=== PATIENT | male | born 1995 | race Caucasian/White ===

== ENCOUNTER 2019-05-07 09:00 | Outpatient (RCR) | payer MEDICAID, SELFPAY ==
--- NOTE | 2019-05-07 09:10 | BH.SGPN.GN ---
Behaviors/Verbalizations/Mental Status: [] Eye contact is good. Motor activity is appropriate. Appearance is casual. Speech is Appropriate. Mood is anxious. Affect is congruent. Thoughts are linear and logical. No evidence of psychosis. Reviewed daily check in sheet and pt reports 1/5 for suicidal thoughts and 0/5 for intent. Client Response/Progress/Benefit: [] Pt participated at times during the group discussion. This was pt's first day in IOP. Shared increased in depression and anxiety related to father's stage 4 cancer, recent deaths, and break-up with GF. He disclosed the poor decisions that he made in the past month which have exacerbated his depressions and anxiety. 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 No progress noted. Benefited from group support and encouragement. Will continue in IOP to maintain safety, stabilize mood, and increase coping skills. Narrative Note: []
--- NOTE | 2019-05-07 10:16 | BH.SGPN.GN ---
Behaviors/Verbalizations/Mental Status: []Client alert and oriented, neatly dressed and groomed. Eye contact good. Motor activity appropriate. Speech within normal limits. Affect congruent, mood anxious. Thoughts linear, logical, no signs of hallucinations or delusions. Client Response/Progress/Benefit: []Client was an active participant in group activity and provided positive input during discussion. Client connected with the group quote and shared ?if you don?t recognize small progress you?ll want to give up and think you?ve made no progress at all.? Group worked together to define goals and identify the benefits of developing goals which included; moving forward in life, increasing self-esteem, gives purpose in life, sense of accomplishment, and increasing determination. Group also identified barriers to setting and accomplishing goals which include; fear of failure, wanting instant results, unrealistic expectations, distorted thoughts, lack of motivation, and apathy. Attentive during education on developing SMART goals. Benefited from increase awareness of goal-setting methods. Client?s first day of IOP. Will continue tx to prevent decompensation of depressive symptoms and improve daily functioning.
--- NOTE | 2019-05-07 11:15 | BH.SGPN.GN ---
Behaviors/Verbalizations/Mental Status: []Client alert and oriented, casually dressed and neatly groomed. Eye contact good. Motor activity appropriate. Speech within normal limits. Affect constricted, mood anxious and depressed. Thoughts linear, logical, no signs of hallucinations or delusions. Client Response/Progress/Benefit: []Pt attentive throughout, mostly quiet, contributed thoughts to discussion at times. Engaged in creating own mental health SMART goal. Pt identified goal is to make a list of future goals and identify three positives from the day every evening for a week. Pt reported this goal will benefit him by increasing his positive thinking and challenging negative lens about the future. Pt identified potential barriers to accomplishing goal to include: fear of disappointment, apathy, and dwelling on past failure. Pt reported he will overcome barriers by identifying potential consequences of not following through with his goal and by identifying past successes. Seemed to benefit from identifying a SMART goal and coming up with strategies to overcome potential barriers. Pt to continue IOP to increase healthy coping skills, improve emotional regulation, and prevent decompensation. Narrative Note: []
--- NOTE | 2019-05-07 12:26 | BH.COMM_ITS ---
Communication Note - Communication with Client Communication Note: Therapist met with client to complete intake paperwork and answer client's questions about IOP. Client denied any changes since his intake appointment last week. Therapist completed the [place]-Suicide Severity Rating Scale with client. Client reported he has had wishes of within the last month, but he denied having any suicidal ideations, plan, or intent within in the last month. Client denies having access to weapons in his home. Client iden tifies his edvin and family as his reasons to live.
--- NOTE | 2019-05-07 13:43 | BH.MDN ---
Multi-Disciplinary Note - Note 45-min Individual Time Started:: 12:11 Date: 05/07/19 Purpose of session/treatment goals addressed:: Purpose of this session was to establish rapport with pt, gather additional information regarding pt current functioning, symptoms, and stressors impacting mental health. Other topics including development of treatment goals. Eye Contact:: Good Motor Activity:: Appropriate Appearance:: Neat, Casual Speech:: Appropriate Mood:: Anxious, Depressed Affect:: Full, Other - incongruent AEB pt smile while discussing feelings of hopelessness/helplessness Thoughts:: Linear, Logical, No evidence of hallucinations/delusions noted Staff Interventions:: Therapist asked open ended and furthering questions to gather additional information regarding pt's symptoms, current stressors, as well as events leading to IOP admission. Worked with client to explore treatment goals to address in IOP. Therapist used strengths perspective to build rapport and help pt identify personal positives and resilience factors. Therapist used empathic responses to provide emotional validation. Applied PA techniques to explore coping strategies that have helped in the past, potential treatment barriers, and establish IOP treatment goals. Client Response:: Pt open to meeting with this therapist and engaged throughout session. He reports that his first day in IOP has gone well but that he is somewhat concerned his problems ?aren?t as bad as others?. Therapist and pt discussed self-comparison as a potential barrier and ways to challenge these thoughts when they occur in order to best promote treatment goal progress. Pt willing to continue giving group a chance and indicated understanding of how reframing could be helpful. Pt displaying insight and was able to make connections between how his thoughts have impacted his mental health in the past. Pt discussed recent stressors causing rumination and resulting in increased symptom severity. He shared primarily struggling with self-deprecating thoughts related to a recent break-up. Went on to discuss continued tension with his ex-girlfriend as he is having difficulties maintaining healthy boundaries and accepting the end of the relationship. Additional stressors include his father?s health, grieving the loss of his grandmother and the family dog, as well as fears of not living up to the expectations he has for his life. Pt identified racing thoughts and fears about not being successful in his future and being unloveable. Currently endorses symptoms of hopelessness, helplessness, reports passive thoughts of without plan or intent, ruminating anxiety that has resulted in panic attacks, sadness, loneliness, decreased appetite, and low motivation. Reports limited supports as he indicates decreased contact with friends following his recent breakup as they had been in a mutual friend group. Pt identified goals of decreasing anxiety and improving ability to manage rumination. Additional goals to increase sense of hope and reduce depressive symptoms impacting self-esteem. Risks/Concerns:: Pt completed the [place]-Suicide Severity Rating Scale during intake paperwork. Reported he has had wishes of within the last month. Denied having any active suicidal ideations, plan, or intent as of this date 05/07/19. Denies having access to weapons in his home. Identifies his edvin and family as his reasons to live. Progress Toward Goals/Plan:: Pt's first day of IOP, therefore no progress currently. Reports this is his first group therapy experience, so he feels nervous and unsure of whether this will be a ?good fit?. Pt endorses a depressed and anxious mood, negative thinking, anhedonia, passive thoughts of , decreased eating, impulsive behaviors, and limited supports. Will continue IOP to prevent decompensation, improve daily functioning, and increase mood stability. Time Stopped:: 12:54
--- NOTE | 2019-05-07 13:47 | BH.MTP_ITS ---
Master Treatment Plan - Patient Information Program Physician:: Dr. Apryl Foster Primary Therapist:: JACLYN Hensley - Psychiatric Diagnoses Psychiatric Diagnoses:: Major depressive disorder recurrent severe without psychosis, generalized anxiety disorder Diagnosis Code(s):: F 33.2 - Estimated LOS Estimated LOS (in weeks):: 6 Problem/Goal #1 - Problem/Goal #1 Stated Goal:: Client will decrease depressive symptoms, isolation, and passive suicidal ideations due to Major Depressive Disorder. Description of Barriers: Pt reports his father has been struggling with a cancer diagnosis which has been difficult for pt to cope with as well as added additional responsibilities for pt. Pt reports he has additionally experienced the recent loss of his grandmother and the family dog. Indicated low motivation to complete daily responsibilities due to lack of energy and enjoyment. Difficulties in reaching out to supports or communicating with others due to low self-confidence, limited supports, and experiencing difficulties in connecting with others. Recently experienced end of relationship with long-term girlfriend of five years which has further limited social support network. Reports feeling guilty about needing to ask for help. Functional Impact: Pt is a 23-year-old male with a history of depression and anxiety. Pt reports worsening symptoms in the 4-6 weeks prior to [facility] admission. Pt reports symptoms increased after his girlfriend of 5 years ended the relation ship. Additional stressors include the recent loss of his grandmother and family dog, as well as his father?s ongoing medical concerns related to a cancer diagnosis. At time of admission to [facility], pt endorsing increased depression, worthlessness, hopelessness, lack of motivation, anhedonia, low energy, fatigue, decreased appetite, poor concentration, forgetfulness, and passive thoughts of . Pt additionally reports having fleeting suicidal ideation without plan or intent. Denies active SI, plan, and intent. Pt additionally reports intrusive thoughts, rumination, and panic attacks. Panic is often exacerbated when away from home. At admission, pt?s symptoms were continuing to interfere with his social, occupational, and familial functioning. Goal Relevant Strengths/Supports: Client presents as a kind, intelligent, and motivated to improve his mental health. Client reports he uses his as support. Client is familiar with mental health tx and has an outpatient therapist and psychiatrist he sees regularly. Reports openness to learning new mental health sx management skills. - Objectives Objective #1 Stated Objective: Client will learn and utilize 2-3 healthy coping strategies to manage depressive symptoms. Interventions: Therapist will assist client in learning internal coping strategies to manage depressive symptoms, along with helping client identify triggers. Discharge Criteria: Client will have achieved this goal when can verbalize and has practiced at least 2 healthy coping strategies. Target Date: 06/18/19 Review Date: 06/04/19 Objective #2 Stated Objective: Client will identify 2-3 depressive thinking patterns and be able to challenge and replace negative thoughts. Interventions: Therapist will assist client in identifying depressive thinking patterns and provide client with resources to help teach client strategies in defeating negative thoughts. Discharge Criteria: Client will have achieved this goal when can verbalize and has practiced at least 2 healthy coping strategies. Target Date: 06/18/19 Review Date: 06/04/19 Problem/Goal #2 - Problem/Goal #2 Stated Goal:: Client will decrease ruminating thoughts which cause anxiety and feelings of panic. Description of Barriers: Pt reports his father has been struggling with a cancer diagnosis which has been difficult for pt to cope with as well as added additional responsibilities for pt. Pt reports he has additionally experienced the recent loss of his grandmother and the family dog. Indicated low motivation to complete daily responsibilities due to lack of energy and enjoyment. Difficulties in reaching out to supports or communicating with others due to low self-confidence, limited supports, and experiencing difficulties in connecting with others. Recently experienced end of relationship with long-term girlfriend of five years which has further limited social support network. Reports feeling guilty about needing to ask for help. Functional Impact: Pt is a 23-year-old male with a history of depression and anxiety. Pt reports worsening symptoms in the 4-6 weeks prior to [facility] admission. Pt reports symptoms increased after his girlfriend of 5 years ended the relationship. Additional stressors include the recent loss of his grandmother and family dog, as well as his father?s ongoing medical concerns related to a cancer diagnosis. At time of admission to [facility], pt endorsing increased depression, worthlessness, hopelessness, lack of motivation, anhedonia, low energy, fatigue, decreased appetite, poor concentration, forgetfulness, and passive thoughts of . Pt additionally reports having fleeting suicidal ideation without plan or intent. Denies active SI, plan, and intent. Pt additionally reports intrusive thoughts, rumination, and panic attacks. Panic is often exacerbated when away from home. At admission, pt?s symptoms were continuing to interfere with his social, occupational, and familial functioning. Goal Relevant Strengths/Supports: Client presents as a kind, intelligent, and motivated to improve his mental health. Client reports he uses his as support. Client is familiar with mental health tx and has an outpatient therapist and psychiatrist he sees regularly. Reports openness to learning new mental health sx management skills. - Objectives Objective #1 Stated Objective: Client will identify 2-3 anxiety triggers and 2 coping skills to use when feeling anxious. Interventions: Therapist will encourage client to use self-awareness strategies and assist client in developing coping strategies to manage ruminating thoughts. Discharge Criteria: Client will have met this goal when can identify at least 2 triggers and 2 ways to cope with anxieties. Target Date: 06/18/19 Review Date: 06/04/19
--- NOTE | 2019-05-07 13:47 | BH.PSA ---
Source of Information - Presenting Problems/Circumstances Problems, Referral Source, Mental Status, Client: Pt is a 23-year-old male with a history of depression and anxiety. Pt reports worsening symptoms in the 4-6 weeks prior to [facility] admission. Pt reports symptoms increased after his girlfriend of 5 years ended the relationship. Additional stressors include the recent loss of his grandmother and family dog, as well as his father?s ongoing medical concerns related to a cancer diagnosis. At time of admission to [facility], pt endorsing increased depression, worthlessness, hopelessness, lack of motivation, anhedonia, low energy, fatigue, decreased appetite, poor concentration, forgetfulness, and passive thoughts of . Pt additionally reports having fleeting suicidal ideation without plan or intent. Denies active SI, plan, and intent. Pt additionally reports intrusive thoughts, rumination, and panic attacks. Panic is often exacerbated when away from home. At admission, pt?s symptoms were continuing to interfere with his social, occupational, and familial functioning. Psychiatric Presentation - Psych Issues & Need for Admission Psychiatric Issues:: Depression, anxiety, grief Past Psychiatric History - Treatment Hx Treatment History: Pt receives services from [facility] for both psychiatry and counseling. Pt has a psychiatrist (Dr. Garcias) whom he has seen for about 2 years. He has a counselor and that he has seen for about 1 year off and on and has seen more frequently since March. First hospitalization:: Denies Most recent hospitalization:: Denies Medication Trials:: Yes - He said he has been on a lot of past medications for depression and anxiety ECT Therapy:: No Age of first mental health symptoms: Pt reports first experiencing mental health sx in middle school. Indicating he was first depressed and very anxious with panic attacks around age 13 after transferring schools Describe (age, circumstance, etc) any past hospitalizations: no prior hospitalizations Current providers for mental health treatment (counselor, psychiatrist, manager case, etc.): Cielo at [facility] for outpatient counseling and Dr. Garcias for psychiatry services. Development & Family of Origin - Childhood Significant Childhood Events: Pt was adopted at 2 weeks old and met two of his biological siblings as a young adult, reports his biological mother was an alcoholic. Pt first experienced mental health sx of depression and anxiety at 13 years old following transfering schools. Reports doing fairly in school but did not like it much. - Family Who currently lives in your home?: Pt lives with his mother and father and is currently staying at his grandparents house due to his parent's home being remodeled. Describe family composition:: Pt is adopter and has two biological siblings whom he does not see often. Lives with adopted parents from age of 2 weeks old - Family History Family Hx of Psychiatric or AOD Problems: Biological mother has hx of alcohol abuse and depression. Biological siblings report hx of depression and anxiety Ethnicity - Culture Do you identify yourself with any particular cultural, ethnic background, or community?: No - Sexuality Sexual Orientation: Heterosexual Spirituality - Orthodoxy Do you currently identify with any organized episcopal?: None - Beliefs Is there a particular form of support from this community you can use for your recovery?: No Mental Status - Memory Recent Memory: Good Remote Memory: Good - Concentration Concentration: Fair - Eye Contact Eye Contact: Good - Speech Speech: Articulate - Thought Process Thought Process: Logical Insight: Fair Judgment: Fair Behavior: Normal, Anxious - Orientation Orientation: Time, Person, Place, Situation - Appearance Appearance: Neat/clean - Mood Mood: Anxious, Depressed, Irritable - Affect Affect: Appropriate/calm Suicide Assessment - Suicidal Ideation Have you ever felt like hurting yourself?: No Were you using ETOH/drugs at the time?: No Suicidal Intentional Rating Scale (SIRS): No suicidal thoughts (past or present) - prior and current passive thoughts of not wanting to be alive but denies SI, plan, or intent, Suicidal thoughts (past) Physician Notification: If Active suicidal thoughts/Will not contract for safety is checked, contact physician and document in the Physician Notification section below. Violent Behavior/Abuse History - Homicidal Ideation Do you have any homicidal thoughts? If so, explain:: No Is there a known potential victim? If yes, who:: No - Abuse Have you ever been abused?: No - Life Events Are there any other significant life events?: - grandmother, dog, Hardships - Girlfriend of 5 years recently broke up with him, Family illness - father recently dx with stage IV liver cancer - Safety Do you ever feel threatened in your home? If yes, describe:: No Adult Social History - Age 18 to Present Describe your current support system:: Reports main support is his mother but does not have a strong support system Substance Use - Substance Substance Use Type: None - Specific Drugs What specific drugs have you used?: denies - Extent of Use What quantity of substances have you used?: denies prior use - Duration of Use How long have you used substances?: denies prior use - Last Usage What is the date and situation you last used?: denies prior use - IV Substance Use Do you have a history of IV use?: denies prior use Leisure/Social Activities - Interests What do you enjoy or might be interested in learning about?: Pt reports feeling unsure of who he is or what he enjoys and indicates wanting to discover more of his own interests and hobbies. Enjoys snowboarding and hiking. 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 List any previous volunteering you may have done:: denies Service - Service Have you ever been in the ?: No Legal History - Records Have you had any past legal charges?: No Do you have any current legal charges?: No Have you ever been incarcerated? If yes, describe:: No - Court Orders Have you had any past court orders for psychiatric treatment?: No Do you have a present court order for psychiatric treatment?: No Problem Checklist - Current Problem Areas Problem List: Nutritional/Eating pattern changes - recently lost 20 pounds in past two months due to decreased appetite, Depressed mood/sad, Bereavement, Anxiety Discharge Planning Needs - Anticipated Follow-Up Mental Health Center (Name/Phone Number):: [facility] Private Therapist/Psychiatrist:: Cielo [facility] and Dr. Garcias Release of Information Signed:: Yes Inside Sales Account Representative's Assessment - Client's Needs What are the client's feelings about the program?: Pt is ambivilant about the [facility] tx program as he is not sure how he will feel being in the group setting. Indicates willingness to Give it a try and is hopeful to learn skills for reducing depression and improving anxiety/stress management. What are the client's goals?: reduce anxiety and depression, increase coping skills repetoire, reduce apathy What are the client's strengths?: approachable, caring, intelligent, open Diagnoses - Diagnoses Diagnosis #1:: Major depressive disorder recurrent severe without psychosis Diagnosis #2:: generalized anxiety disorder Interpretive Summary - Interpretive Summary Interpretive Summary: Patient is a 23-year-old single male with a history of depression and anxiety who was referred to the [place] IOP program by his counselor on May 01, 2019. He was referred due to worsening anxiety and depression which has been worsening since early March 2019. 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 He lives with his parents in a house and gets along okay with them. He has had a lot of stressors involving loss in the past 1 or 2 months including the of his grandmother, of his dog, father diagnosed with stage IV liver cancer and currently dying (according to the patient). In addition, his girlfriend of over 5 years broke up with him in early March. He has been able to function at work but his concentration is decreased and his energy is low so it has not been easy. He describes his mood as hopeless and occasionally worthless feeling. He has been isolating himself and not socializing. He is not enjoying much of anything he does lately except may be driving to work and IOP is slightly enjoyable because it is peaceful. His appetite has been decreased and he lost 20 pounds in the past 2 months. His sleep is okay overall but he has had to stay at his grandparents house due to remodeling at his parents house recently and he only gets about 6 hours of sleep there. When he sleeps at home he gets 7 to 8 hours of sleep and sleep is okay. He he endorses feeling guilty over losing his girlfriend due to some type of infidelity on his part and over not contributing to society lately. He describes passive thoughts that he would not care if he but denies any suicidal ideation or plan. He denies also homicidal ideation, hallucinations, or delusions. Treatment Plan Recommendations - Recommendations Guidelines: Special needs identified to be included in the development of an individualized treatment plan regarding past psychiatric history and treatment, developmental events, family relationships/events/culture, past and/or current educational, occupational, social, and residential experience, and legal status. Recommendations:: Will be admitted to the IOP program at [facility] as the structure, education, individual and group therapy will prevent exacerbation of his symptoms which might require hospitalization. He will continue to follow-up with his outpatient psychiatric providers.
--- NOTE | 2019-05-08 09:00 | BH.SGPN.GN ---
Behaviors/Verbalizations/Mental Status: []Client alert and oriented, casually dressed and groomed. Eye contact good. Motor activity appropriate. Speech within normal limits. Affect constricted, mood anxious. Thoughts linear, logical, no signs of hallucinations or delusions. Reviewed client?s symptom tracker and client marked 1/5 for thoughts of suicide. Client denies risk of acting on these thoughts as shown by his score of 0/5 for risk. Client Response/Progress/Benefit: []Client responded well to session, engaged throughout. Client reports feeling ?exhausted and anxious? today. Client shared that it is challenging for him in group at times because his anxiety gets triggered by other?s responses to situations. The group processed a situation that happened during first group in which as group member was triggered. Client appeared to benefit from normalizing his anxiety and gaining reassurance. Client reported he went on a hike yesterday when he was feeling anxious and the hike helped him feel somewhat better. Client shared he was proud of himself for managing his emotions yesterday when he saw his ex-girlfriend. Client stated in the past he would have had a panic attack, but he was able to stay calm and continue with his day. Client?s stressor this morning is that he has to stay with his grandparents while his parent?s house gets remodeled. Client reported being in a different environment is stressful for him. Receptive to feedback on managing change. Appeared to benefit from processing emotions and stressors in a safe environment. Will continue IOP tx to prevent decompensation of symptoms and improve mood stability.
--- NOTE | 2019-05-08 10:02 | BH.SGPN.GN ---
Behaviors/Verbalizations/Mental Status: [Eye contact is good. Motor activity is appropriate. Appearance is neat, casual. Speech is Appropriate. Mood is anxious, depressed. Affect is incongruent AEB pt smiling and laughing despite reported mood. Thoughts are linear and logical. No evidence of psychosis.] Client Response/Progress/Benefit: [Pt was an active participant in group activity and discussion. Attentive during psycho-education. Pt worked with peers to define coping skills and discussed that coping skills included; skills to use to get us through difficult times, techniques to manage emotions, and reactions to difficult things/stressors in life. Group also worked together to identify how we learn our coping skills and pt indicated that past experiences, lack of awareness of what else to do, habit, environment, and fear contribute to commonly used means of coping. Group discussed that not all coping skills are healthy and identified common unhealthy coping skills. Pt indicated that in the past he has struggled with coping with depression and anxiety in unhealthy ways such as through; isolating, avoidance, and not reaching out to others. He participated in challenge activity in which participants were tasked with applying healthy coping skills to remain calm and regulate themselves while working together to complete a difficult task. After the group related the activity to need for healthy coping skills in daily life and pt expressed that having a good communication and encouragement from others is important for coping skill development. Pt benefited from increased insight and education on healthy vs unhealthy coping and internal vs external coping skills. Recommended continued IOP tx to reduce anxiety and depression, increase consistent skill application, and prevent decompensation.] Narrative Note: []
--- NOTE | 2019-05-08 11:11 | BH.SGPN.GN ---
Behaviors/Verbalizations/Mental Status: [Client alert and oriented, neat and casually dressed and groomed. Eye contact good. Motor activity appropriate. Speech within normal limits. Affect congruent, mood anxious, depressed. Thoughts linear, logical, no signs of hallucinations or delusions. ] Client Response/Progress/Benefit: [Client responded well to session, engaged throughout, actively listening and provided ideas during group brainstorming. Client appeared to connect with the activity from second group and helped the group identify benefits of having a strong foundation of internal and external coping skills. Client shared he wants to continue to develop new healthy means for coping so that she does not revert to old unhealthy habits of isolating and feeling hopeless when faced with o. Client helped the group discuss the different categories of coping skills and provided examples. Client created a coping skills ?menu? for the five categories of coping skills. Client selected hiking, exercising at the gym, positive self-talk/self-couching, and using supports to talk to when stressed. Client appeared to benefit from increasing his repertoire of healthy coping skills. Progress noted in client?s improved mood and report of reduced intensity of mental health symptoms. Client to continue IOP to promote gains and improve level of functioning.] Narrative Note: []
--- NOTE | 2019-05-09 09:38 | BH.DR.ITP ---
Initial Treatment Plan - Patient Information Visit Information: ADMISSION DATE: EXPECTED LOS: 4-6 weeks - Problems/Symptoms Problem #1:: Depression Symptom:: Hopelessness, anhedonia, fatigue, passive thoughts of Problem #2:: Anxiety Symptom:: Rumination, mild panic feelings
--- NOTE | 2019-05-09 09:40 | BH.PSY.EVA_ITS ---
Psychiatric Evaluation - Initial Evaluation Initial Evaluation: Chief Complaint: [Life has been bad] History of Present Illness: [] Patient is a 23-year-old single male with a history of depression and anxiety who was referred to the [facility] IOP program by his counselor on May 01, 2019. He was referred due to worsening anxiety and depression which has been worsening since early March 2019. 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 He lives with his parents in a house and gets along okay with them. He has had a lot of stressors involving loss in the past 1 or 2 months including the of his grandmother, of his dog, father diagnosed with stage IV liver cancer and currently dying (according to the patient). In addition, his girlfriend of over 5 years broke up with him in early March. He has been able to function at work but his concentration is decreased and his energy is low so it has not been easy. He describes his mood as hopeless and occasionally worthless feeling. He has been isolating himself and not socializing. He is not enjoying much of anything he does lately except may be driving to work and IOP is slightly enjoyable because it is peaceful. His appetite has been decreased and he lost 20 pounds in the past 2 months. His sleep is okay overall but he has had to stay at his grandparents house due to remodeling at his parents house recently and he only gets about 6 hours of sleep there. When he sleeps at home he gets 7 to 8 hours of sleep and sleep is okay. He he endorses feeling guilty over losing his girlfriend due to some type of infidelity on his part and over not contributing to society lately. He describes passive thoughts that he would not care if he but denies any suicidal ideation or plan. He denies also homicidal ideation, hallucinations, or delusions. He describes his anxiety is pretty severe now in the form takes is that he worries constantly about the future and is not sure how he will deal with any thing that happens in the future. He denies outright panic attacks but if he takes a nap during the day he wakes up feeling very panicky. It is not an outright panic attack and he is able to talk himself down but it lasts about an hour. He denies any history of aubree, OCD, eating disorder, PTSD, or trauma. For primary support he has his mother but he says he is really not much of a talker. He denies any history of self-harm or seizure. He does have a history of 4 concussions which happened when he was a child and someone from snowboarding. 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 Current Psychiatric Medications: [Kofi 20 mg (at this dose for about 1 month, on it total for about 1 year). Vitamin D supplement, [id number] B12 supplement] Past Psychiatric History: No prior psych admits. No suicide attempts ever. He has a psychiatrist (Dr. Garcias) whom he sees in 1 week and has seen her for about 2 years. He has a counselor and that he has seen for about 1 year off and on and has seen a counselor more frequently since March. He says he was first depressed and very anxious with panic attacks around age 13 after transferring schools. His first psych medication he took around age 20 he thinks. He said he has been on a lot of past medications for depression and anxiety. At least 7 meds but he is unsure of the names. He says that his current psychiatrist knows the names of the past meds he was on and which ones helped and which gave him bad side effects. But he does not remember any of these names except Paxil. [] Substance Use History: Non-smoker, no THC use, no alcohol use. He has not used any other drugs and has never been in rehab for substance use. [] Allergies: No known allergies [] Past Medical History: Negative for illness and no surgeries. Normal sexual function. Current medications: Prozac, vitamin D, [id number] B12 supplement. He also has Vistaril 25 mg p.o. as needed anxiety but he almost never uses it [] Family Psychiatric History: [] She is adopted. His adoptive father is 63 years old and dying of cancer. Adoptive mother is 60 years old. He was adopted at 14 days of life but he knew who his biological family was. He has never met his biological parents but he has met 2 of his biological siblings. From them he learned that there is a history of depression and anxiety in many of his biological siblings. His biological mother is an alcoholic. No completed suicides that he knows of in his biological family. Personal/Social History: [He was born and raised in [facility] [place] for the most part. He was adopted at 2 weeks of life. His adoptive parents are very loving and he is close to both of them. He denies any verbal, sexual or physical abuse growing up. He was not good at school and did not like it much. He graduated high school and has no college yet but may go back to college later. 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 He is worked now at [employer] in [place] for 18 months. He has had one serious girlfriend in the past for over 5 years who recently broke up with him in early March 2019. He had some type of sort of infidelity he said. So he feels a little guilty about that. He has no romantic relationships currently. He does miss his prior girlfriend.] Legal History: [Negative. No DUIs no ] Review of Systems: [] General review of systems and full review of systems negative except as noted in present illness. Vital Signs: [] Stable in the ER records Mental Status Examination: Patient is a 23-year-old male who appears normal or slightly younger than stated age. He is casually dressed and groomed with good hygiene. He is cooperative during the interview and has no psychomotor agitation or retardation. His speech is fluent and normal rate and rhythm with no pressure. He does have a slight lisp when he speaks. Mood is depressed and affect is constricted and consistent with depression. Thought processes goal-directed and organized. Thought content shows that he does have passive thoughts that he would not care if he . Suicidal ideation and there is no evidence of homicidal ideation. No evidence of hallucinations or delusions. Reality testing is intact. Intelligence is average. Judgment is intact and insight is fairly good. Impulsivity is low. Testing: His psychiatrist has checked his thyroid and vitamin D. [] Summary: [] Diagnoses: [] [place] I: [Major depressive disorder recurrent severe without psychosis, generalized anxiety disorder] [place] II: [] Negative [place] III: [] Negative except history of low vitamin D for which she takes a supplement. [place] IV: Primary support issues?loss of girlfriend, of grandma and dog, father dying Plan: [Will be admitted to the IOP program at [facility] as the structure, education, individual and group therapy will prevent exacerbation of his symptoms which might require hospitalization. He will continue to follow-up with his outpatient psychiatric providers. He will be continued on the same dose of Prozac 20 mg p.o. daily and will see his psychiatrist in 1 week. The risks options possible complications and side effects of medications he is on were discussed with the patient and he understands and accepts these. He feels safe currently and if he does not feel safe at some time in the future he will notify us at the [facility] or go to the emergency room.]
--- NOTE | 2019-05-09 10:49 | BH.NA ---
Physical Data - Vital Signs Temperature: 97.8 F Pulse Rate: 60 Respiratory Rate: 12 - Height/Weight Height: 1.6 m Weight:: 53.524 kg Weight in Pounds: 118.0 lbs Current Medication Compliance - Medication Compliance Do you take your medication as prescribed?: Yes Do you need assistance with taking medication?: No Have you had side effects from medication?: No Nutritional History - Appetite Nutritional Instructions:: If client shows signs of a swallowing problem, weight change of 10 pounds or more in the last month, or is on a diabetic diet, the physician will review and request a dietitian consult, as appropriate. All unintentional weight loss will be referred to the physician for decision on need for dietitian consult. Describe your appetite:: Fair Have you noticed a change in your eating habits lately?: Yes - appetite has decreased without significant weight loss Functional Assessment - Sleep Pattern Describe any problems with sleeping: Denies trouble falling or staying asleep. - Activities Motor Activity:: Functional Sensory/Communication Assess - Communication Problems Do you have difficulty understanding what people are saying?: No Do you have trouble putting your thoughts into words or expressing what you want to say?: No Do people ever have trouble understanding what you say?: No What is your primary language?: Maori Learning Assessment - Learning Barriers Learning Barriers:: Ready to learn Medical Problems/History - Pain Assessment Do you have acute or chronic pain?: No Surgical History - Surgical History Have you had any surgeries? If so, list type and date:: No Substance Abuse - Substance Abuse Please describe substance abuse in the last 30 days:: Denies ETOH, tobacco, and substance use. Mental Status Summary - Mental Status Significant Findings/Observations on Appearance and Mood:: Jared is A&Ox4, cooperative with interview, and makes good eye contact. Appropriate grooming and hygiene, casually dressed. Speech is clear and of regular rate and volume. Moderate depression. Mood congruent affect. Denies SI, does have passive thoughts of . Suicide Assessment - Suicidal Ideation Are you currently or have you been suicidal in the past?: No Suicidal Intentional Rating Scale (SIRS): No suicidal thoughts (past or present) Physician Notification: If Active suicidal thoughts/Will not contract for safety is checked, contact physician and document in the Physician Notification section below. Past Psychiatric History - MH Treatment Hx ECT Therapy Details:: N/A Age of first mental health symptoms: 8th grade Describe (age, circumstance, etc) any past hospitalizations: N/A Current providers for mental health treatment (counselor, psychiatrist, piano case and bench assembler, etc.): Psych - Marcellus Garcias. Counselor - Cielo Grijalva. PCP - Sabi Fall Risk Assessment - Age Age: Less than 60 - Mental Status Mental Status: Willing & able to ask for assistance when needed - Physical Status Physical Status: No problems - Impairments Impairments: None - Elimination Elimination: Continent AND independent - Gait or Balance Gait or Balance: Walks independently - Hx of Falls History of falls in the past 6 months: No known history - Medications/Substances Psychotropics:: Antidepressants, Anxiolytics (e.g. benzodiazepines) Medications/substances used within the past 24 hours or ordered to administer: 1-2 of the medications/substances listed above - Total Score Total Points:: 1 RN Summary of Impressions - Impressions Recommendations: Include psychiatric and medical issues, treatment planning recommendations, and discharge planning needs. Impressions: Psychiatric Issues: MDD, REJI Impression: General Medical Conditions: N/A Impressions: Discharge Planning Needs: none identified - Level of Care How do the client's current symptoms and functional deficits support need for this level of care?: Jared has noticed a decompensation in his mental health since March 2019, at which time he had a series of losses, including his father, grandmother, and dog. He also had a recent breakup with his girlfriend, during which he lost many friends. Client endorses isoloative behaviors and poor motivation for anything. He does have some passive thoughts of . IOP will promote gains and prevent further decompensation.
--- NOTE | 2019-05-09 14:48 | BH.MDN_ITS ---
Multi-Disciplinary Note - Note 60-min Individual Time Started:: 11:27 Date: 05/09/19 Purpose of session/treatment goals addressed:: Goal of session was to assess current symptoms and stressors impacting functioning. Reviewed progress in IOP and discussed pt ongoing ambivalence about group. Another goal was to address pt concerns regarding limited support system. Eye Contact:: Good Motor Activity:: Appropriate Appearance:: Casual Speech:: Appropriate Mood:: Depressed Affect:: Congruent Thoughts:: Linear, Logical, No evidence of hallucinations/delusions noted Staff Interventions:: Therapist used active listening and asked open-ended questions to explore pt's current stressors, symptoms, and factors impacting treatment commitment. Therapist used strengths perspective to empower pt on willingness to continue with tx despite ambivalence. Therapist addressed concerns about anxiety impacting pt ability to expand support network. Therapist used PA techniques to help pt identify and begin to address barriers impacting willingness to reach out to supports. Therapist aided pt in completing decisional balance to address ambivalence about support network. Therapist gave pt homework to rate anxieties about social settings. Client Response:: Pt receptive of session, engaged throughout. He reports being able to better adjust to group setting now that he has attended for past three days, however continues to report ambivalence regarding commitment to treatment. Pt discussed continuing to feel anxious when hearing other participants share personal struggles, reporting increased negative thoughts about his own life as a result. Pt has some insight regarding benefits of using self-coaching and reframing in the moment on reducing anxiety. Additionally, pt identified difficulties in getting up in the morning as a barrier impacting treatment commitment. Pt reports typically going to bed around 11:30pm but feels he is not able to go to bed earlier as nighttime is ?my only chance to have time to myself in the house?. Therapist attempted to work with pt on identifying ways to increase independent self-care time outside of the home and earlier in the day to improve sleep quality. Pt reports feeling uncomfortable doing activities outside of the home by himself. Shared he previously would do things with his ex-girlfriend and no longer has anyone to spend time with. Expressed he does not currently have any supports he is willing to reach out to as he notes ?I don?t really enjoy spending time with my current friend group?. Unable to identify on support he feels able to connect with. Therapist discussed potential benefits of expanding current support network, however pt indicates hesitancy in doing so. Able to work with therapist on identifying barriers of ?fear of rejection?, ?not feeling I have anything in common with them?, and ?not wanting to put in the time or effort to develop a friendship?. He shared reluctance to meet new people as pt believes this feels ?uncomfortable and too fake?. Willing to work with therapist on completing decisional balance regarding working through initial discomfort to expand support system. Continues to feel hesitant in doing so despite identifying benefits. Will continue to encourage pt to connect with others and reduce isolation. Pt willing to complete fear ladder to begin identifying and addressing specific fears related to social anxiety and establishing new supports. Risks/Concerns:: No risks or concerns noted. Pt denies any SI, plan, or intent as of this date 05/09/19. Reports his edvin as major protective factor. Progress Toward Goals/Plan:: Progress limited. Pt cotinues to report symptoms of depression and anxiety which he feels have increased due to decreased sleep since beginning IOP program. Reports using self-coaching to reduce anxiety on previous date but felt this was only helpful momentarily. Pt continues to reports uncertainty about willingness to commit to treatment which may impact hi s ability to fully apply skills learned. Pt reports feeling lonely and disconnected however is reluctant to develop new supports or reach out to current supports. Pt recommended continued IOP tx to reduce symptoms of depression and anxiety, increase mood stability, and prevent decompensation. Time Stopped:: 12:18
--- NOTE | 2019-05-14 09:05 | BH.SGPN.GN ---
Behaviors/Verbalizations/Mental Status: [Eye contact is good. Motor activity is appropriate. Appearance is neat and casual. Speech is Appropriate rate and tone. Mood is euthymic. Affect is congruent. Thoughts are linear and logical. No evidence of psychosis. Reviewed daily check in sheet and pt denies any active SI, plan, or intent. ] Client Response/Progress/Benefit: [Pt responded well to session, engaged throughout and open to processing with the group. Pt indicated current emotion as ?half-motivated? and discussed that this is due to beginning to see improvements in ability to challenge anxious thoughts and prevent from escalating to point of panic. Went on to discuss that although he continues to struggle with intrusive thoughts, he is using skills of self-talk and reaching out to supports. Pt did well to identify mental health wins which included using calming skills as well as setting aside time to write down daily positives. Pt appearing to benefit from support and structure of group environment. Expressed connecting increasingly with fellow participants. Pt continues to make progress in practicing more consistent use of coping skills and is recommended continued IOP tx to prevent decompensation, decrease depression, and promote ongoing application of healthy coping skills.] Narrative Note: []
--- NOTE | 2019-05-14 10:15 | BH.SGPN.GN ---
Behaviors/Verbalizations/Mental Status: []Client alert and oriented, casual dress, hygiene tended to. Eye contact good. Motor activity appropriate. Speech within normal limits. Affect congruent, mood dysthymic. Thoughts linear, logical, no signs of hallucinations or delusions. Client Response/Progress/Benefit: []Client responded well to session AEB contributing thoughts to discussion and listened attentively to others. Client indicated connecting with the topic of cognitive distortions and shared if don?t catch that we are being negative then negative thinking becomes ?the normal?. Client connected with the discussion about how distorted thought patterns can reinforce mental health symptoms. Client did well to work with the group on defining the various types of cognitive distortions and identifying how each distortion can negatively impact mental health. Client stated he struggles most often with using the distortions of fortune telling and mindreading. Client reported he often ?fortune tells? that the day is going to ?be terrible? and that ?there is no bright future for him?. Client recognized distorted thought patterns exasperate his depression and keep him stuck. Appeared to benefit from increasing awareness of cognitive distortions and how they can impact emotions and behaviors. Client to continue IOP to decrease depression, identify and challenge negative thoughts and prevent decompensation. Narrative Note: []
--- NOTE | 2019-05-14 15:43 | BH.MDN ---
Multi-Disciplinary Note - Note 30-min Individual Time Started:: 11:38 Date: 05/14/19 Purpose of session/treatment goals addressed:: Goal of session was to assess current symptoms and stressors, as well as progress towards tx goals. Additional goal was to address treatment goal 1. Eye Contact:: Good Motor Activity:: Appropriate Appearance:: Casual Speech:: Appropriate Affect:: Congruent Thoughts:: Linear, Logical, No evidence of hallucinations/delusions noted Staff Interventions:: Therapist used active listening and asked open-ended questions to explore pt's current stressors, symptoms, and treatment goal progress. Provided empathic responses and supportive feedback to validate pt emotions, as well as commended application of gratitude interventions over weekend. Therapist used PA techniques to continue to promote healthy change behaviors. Therapist aided pt in identifying self-care activities to aid in reducing depressive sx. Client Response:: Pt receptive of session, engaged throughout. He reports being able to identify various positives from his weekend and notes experiencing genuine happiness for a few moments. Expressed this is a big deal as he does not recall experiencing actual happiness since prior to the end of his relationship with his now ex-girlfriend. Pt described that he had agreed to meet up with his family for dinner to celebrate his mother?s birthday on Tuesday and noticed that while driving to the restaurant he was smiling and felt positive. Attributes this to being able to enjoy ?the little things? such as wearing his favorite flannel shirt, listening to good music, and driving down the highway as the sun was setting. Appeared to connect with discussion on gratitude and importance of identifying small moments of dom in order to challenge negative perspective and begin breaking cycle of depression. Willing to continue to keep track of small positive throughout his day and worked with therapist on identifying additional activities he can engage in to promote positivity and reduce depressive symptoms. Pt identified wanting to begin spending more time on his devotionals and reading through his bible. Shared this will be comforting and help improve sense of hope. Additionally, discussed use of affirmations to continue to improve overall self-esteem levels. Risks/Concerns:: No risks or concerns noted. Pt denies any SI, plan, or intent as of this date 05/14/19. Reports his edvin as major protective factor. Progress Toward Goals/Plan:: Progress noted per pt report of improved mood and reduced depressive sx. Pt continues to report symptoms of anxiety however was able to apply self-care concepts and thought challenging techniques to begin challenging negative perspective and identify small positives or moments of dom throughout his day. Continues to report limited supports, struggling with confidence and self-comparison, as well as ongoing anxiety and intrusive thoughts. Pt recommended continued IOP tx to reduce symptoms of depression and anxiety, increase mood stability, and prevent decompensation. Time Stopped:: 12:05
[2019-07-11 14:55] VITALS: PULSE 60; RESP 12; TEMP 36.6
== END 2019-05-14 23:59 ==
LOC: BHIOP 09:00
PROVIDERS: Referring Provider Psychiatry & Neurology Psychiatry; Visit Provider Psychiatry & Neurology Psychiatry
DX: F33.2 Major depressive disorder, recurrent severe without psychotic features (principal); F41.1 Generalized anxiety disorder; E55.9 Vitamin D deficiency, unspecified
CPT/HCPCS: 90792; H0035; H2012; H2020; T1002; 90837

== ENCOUNTER 2019-05-17 09:00 | Outpatient (RCR) | payer MEDICAID, SELFPAY ==
--- NOTE | 2019-05-17 09:05 | BH.SGPN.GN ---
Behaviors/Verbalizations/Mental Status: [] Eye contact is good. Motor activity is appropriate. Appearance is casual. Speech is Appropriate. Mood is euthymic. Affect is full. Thoughts are linear and logical. No evidence of psychosis. Reviewed daily check in sheet and notes 1/5 for suicidal thoughts and 0/5 for intent. This is baseline for patient. Client Response/Progress/Benefit: [] Pt was an active participant in group discussion. Emotion for today is mild anxiety. Shared that he attempted to use some mindfulness skills on his way to work yesterday which included meditation music and positive self-talk. Reports that this was awkward however there was some improvement in symptoms. Ruminating on his job and is thinking about finding a new position. Notes continued anxiety, stress, and depressive symptoms on a daily basis however is trying new skills and being more proactive. Progress noted per pt. Will continue in IOP to maintain safety, increased healthy coping, and prevent decompensation. Narrative Note: []
--- NOTE | 2019-05-17 10:05 | BH.SGPN.GN ---
Behaviors/Verbalizations/Mental Status: []Client alert and oriented, casual dress, hygiene tended to. Eye contact good. Motor activity appropriate. Speech within normal limits. Affect congruent, mood dysthymic. Thoughts linear, logical, no signs of hallucinations or delusions. Client Response/Progress/Benefit: []Pt engaged in session as evidenced by pt listening to others and providing input throughout. Pt stated he believes people run away from problems because fear of fighting and fear of facing our demons. Pt stated he has run away from his problems by isolating and pushing others away. Pt worked cooperatively with peers during problem solving activity, able to work through problem by using A,B,C,D,E problem solving method. Pt seemed to benefit from learning about problem solving method and rehearsing problem solving skills in the moment. Pt to continue IOP level of care to decrease isolation, increase utilization of healthy coping, and prevent decompensation. Narrative Note: []
--- NOTE | 2019-05-17 11:05 | BH.SGPN.GN ---
Behaviors/Verbalizations/Mental Status: []Client alert and oriented, neatly dressed and groomed. Eye contact good. Motor activity appropriate. Speech within normal limits. Affect congruent, mood euthymic. Thoughts linear, logical, no signs of hallucinations or delusions. Client Response/Progress/Benefit: []Client was an active participant in group activity and discussion. Client processed challenge activity with fellow participants and made connections with the barriers to problem solving encountered. Client completed a problem-solving worksheet in which he identified a current problem impacting mental health which is living at home with his parents and developed a [id number] plan to address this problem. Client identified steps such as identifying how much money to save, work more hours, find a roommate, and create a budget. Client identified barriers to include; work anxiety, fear of being alone, and fear of failure. Client did well to brainstorm strategies for addressing this and was open to feedback from the group.? Benefited from creating a personalized plan which client identified barriers and steps to work on a mental health problem. Will continues IOP tx to reduce depressive symptoms and further improve functioning.
--- NOTE | 2019-05-21 09:00 | BH.SGPN.GN ---
Behaviors/Verbalizations/Mental Status: [] Eye contact is good. Motor activity is appropriate. Appearance is casual. Speech is Appropriate. Mood is depressed. Affect is flat. Thoughts are linear and logical. No evidence of psychosis. Reviewed daily check in sheet and reports suicidal thoughts of 1/5 and intent 0/5. This is pt's baseline. Client Response/Progress/Benefit: [] Pt was an active participant in group discussion on the benefits of anxiety, boundary setting, and radical acceptance. Emotion for today is content. Shared some metnal health wins which included traveling with family and self-care with friends. Stressor was explaining to certain family and friends who he has not seen that him and his long time GF broke up. This triggered regrets, memories, and emotions. Denies any any emotions or thoughts became overwhelming. Progress noted per pt report. Benefited from group support, encouragement, and feedback. Will continue in IOP to maintain safety, prevent decompensation, and increase healthy coping skills. Narrative Note: []
--- NOTE | 2019-05-21 10:10 | BH.SGPN.GN ---
Behaviors/Verbalizations/Mental Status: []Client alert and oriented, casual appearance. Eye contact good. Motor activity appropriate. Speech within normal limits. Affect congruent, mood euthymic. Thoughts linear, logical, no signs of hallucinations or delusions. Client Response/Progress/Benefit: []Pt was an active participant in group discussion. Processed quote of the day with peers. Group discussed the MH benefits to having open and clear communication with support and providers. Pt connected with peers that he uses behavior to communicate how he feels because believes if people care about him they will recognize he is not doing well by how he is acting. Through discussion pt recognized using only behavior to communicate often sets him up to be disappointed and reinforces negative thought patterns. Group also discussed the barriers that tend to impact clear and open communication which include: fear, distorted thoughts, predicting the future, misinterpretations, non-verbal communication, and assumptions. Pt was attentive during psycho-education on communications styles (aggressive, passive, passive-aggressive, and assertive). Also provided input on the pros and cons to each communication style. Pt stated he could connect with all the different communication styles. t seemed to benefit from increased insight on how the way he communicates impacts his mental health. Pt to continue IOP level of care to increase generalization of healthy coping skills, identify and challenge distorted thoughts and prevent decompensation. Narrative Note: []
--- NOTE | 2019-05-21 11:10 | BH.SGPN.GN ---
Behaviors/Verbalizations/Mental Status: []Client alert and oriented, neatly dressed and groomed. Eye contact good. Motor activity appropriate. Speech within normal limits. Affect congruent, mood euthymic. Thoughts linear, logical, no signs of hallucinations or delusions Client Response/Progress/Benefit: [] Client active participant AEB his positive contributions and engagement throughout. Client reported he is an assertive communicator ?most of the time? and that it works out well. However, client shared he can become frustrated and defensive when being assertive does not go his way. Client took an active role during the activity and able to connect how ineffective communication negatively impacts mental health and relationships. Client identified his communication goal which is to practice being more ?upfront? with people when communicating rather than being vague. Client seemed to benefit from increased insight into how his communication style impacts her mental health and relationships. Client progressing as show by his report of improved management of negative thinking. Will continue IOP tx to promote mood stability and further improve daily functioning.
--- NOTE | 2019-05-25 10:18 | BH.SGPN.GN ---
Behaviors/Verbalizations/Mental Status: [Client alert and oriented, neat and casual dress, hygiene tended to. Eye contact good. Motor activity appropriate. Speech within normal limits. Affect congruent, mood dysthymic. Thoughts linear, logical, no signs of hallucinations or delusions. ] Client Response/Progress/Benefit: [Pt receptive of session, engaged throughout. He did well to work with the group to reflect on the quote and discussed the ways in which perspective can impact mental health and ability to make personal progress in life. Pt indicated that he had struggled with a negative or dismissive perspective on the past and noted that thoughts of ?someone will take care of it for me ? had kept him stuck and prevented from facing things he feels anxious about in the past. Expressed that a positive perspective can improve overall happiness.. Pt did well to engage in the challenge activity and was an active participant in identifying how perspective impacted ability to complete the task at hand. Shared that when supports have different perspectives it can be difficult to effectively communicate mental health needs. Pt appeared to benefit from increasing understanding of mental health benefits of a positive perspective and potential consequences to progress when perspective is negative or pessimistic. Pt progress noted in his ability to better manage stressors and report of decreased depression. Recommended continued IOP tx to promote continued progress, further decrease anxiety, and prevent decompensation.] Narrative Note: []
--- NOTE | 2019-05-25 11:15 | BH.SGPN.GN ---
Behaviors/Verbalizations/Mental Status: []Client alert and oriented, neatly dressed and groomed. Eye contact good. Motor activity appropriate. Speech within normal limits. Affect congruent, mood dysthymic. Thoughts linear, logical, no signs of hallucinations or delusions. Client Response/Progress/Benefit: []Client responded well to session, attentive and engaged during small group session. Group discussed the mental health benefits of recognizing strengths which included; improved self-esteem, better relationships, and increased resilience. Group identified the barriers that have prevented them from acknowledging their strengths and successes. These barriers included; negative thoughts, self-depreciation, mistaken beliefs, and not feeling allowed to acknowledge strengths. Group identified strategies to overcome barriers that prevent them from seeing strengths. These strategies included; keeping track of progress, practicing self-compassion, and challenging distortions. Client able to identify personal strengths he possesses which included; empathy, honesty, adventurousness, athleticism, and forgiveness. Appeared to benefit from recognizing personal strengths and identifying strategies to overcome barriers. Will continue IOP tx to decrease rumination and further increase healthy coping skills.
--- NOTE | 2019-05-25 16:32 | BH.MDN_ITS ---
Multi-Disciplinary Note - Note 30-min Individual Time Started:: 09:30 Date: 05/25/19 Purpose of session/treatment goals addressed:: Purpose of this session was to assess pt current symptoms, stressors, and treatment goal progress. Another purpose was to introduce core-beliefs and aid pt in identifying impact of negative core beliefs on mental health. Eye Contact:: Good Motor Activity:: Appropriate Appearance:: Casual Speech:: Appropriate Mood:: Dysthymic Affect:: Congruent, Other - reports feeling numb Thoughts:: Linear, Logical, No evidence of hallucinations/delusions noted Staff Interventions:: Therapist asked open ended and furthering questions to gather additional information regarding current symptoms, stressors, and treatment goal progress. Provided supportive feedback and empathic responses to validate pt emotions and normalize concerns. Therapist commended pt progress and utilized ND techniques to aid in identifying barriers and elicit motivation for change. Provided psychoeducation on core beliefs and began working with pt on i dentifying and challenging/reframing pt negative core beliefs. Gave homework to finish core belief exercise. Client Response:: Pt receptive of session, actively engaged throughout. He indicated feeling as though he no longer has an overwhelming sense of despair. Pt identified this as positive but is concerned that now he is just numb to emotions rather than depressed. Therapist gently challenged pt regarding numbness vs. not being used to being at baseline. Pt appeared receptive and indicated possibily struggling to readjust to what it feels like not to be depressed. Pt discussed what has helped reduce depression and indicated that self-talk, practicing radical acceptance, and engaging in opposite action have been most helpful. Pt discussed that although he feels he has made progress he continues to struggle with negative self-talk and feelings of not being good enough. Pt described thoughts of I'm just going to end up feeling bad again so why bother being happy?, worries of not succeeding in the areas of life he would like, and feeling as though he is a disappointment to others and doesn't deserve happiness. Appeared to connect with psychoeducation on core beliefs and how negative core beliefs can reinfoce depression and prevent willingness to accept positive emotions as valid. Remainder of session was spent aiding pt in identifying potential negative core beliefs that are keeping him from continuing to make progress. Identified feeling like he is annoying to his supports, feeling unattractive, and feeling his depression and anxiety define him as negative core beliefs about self. Pt did well to work with therapist on reframing each of these beliefs and identifying alternative positive affirmations he can use. Able to identify how challenging his perspective can increase hope and ability to sustain more positive emotions. Pt willing to complete remaining worksheet on negative core beliefs as homework and review Tuesday. Risks/Concerns:: No risks or concerns at this time. Pt denies any active SI, plan, or intent as of this date 05/25/19. Progress Toward Goals/Plan:: Progress noted per pt and therapist. Was able to practice opposite action and radical acceptance this past week when feeling anxious or depressed. He reports not isolating despite wanting to and spent time with some friends over the weekend. 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 Beginning to attempt to apply radical acceptance regarding end of his relationship which is a major stressor for him. Pt continues to report daily depression and anxiety which impact functioning. Denies active suicidal ideations, plan, or intent. Fearful that he will never be well enough to accomplish his larger goals for life. Will continue in IOP to maintain safety, prevent decompensation, stabilize mood, and improve daily functioning. Time Stopped:: 10:05
--- NOTE | 2019-05-28 10:07 | BH.SGPN.GN ---
Behaviors/Verbalizations/Mental Status: []Client alert and oriented, neatly dressed and groomed. Eye contact good. Motor activity appropriate. Speech within normal limits. Affect constricted, mood euthymic. Thoughts linear, logical, no signs of hallucinations or delusions. Client Response/Progress/Benefit: []Client active participant during group AEB client occasionally contributing to discussion. Client reported it is important to have social supports, but one can have unrealistic expectations for their supports which can cause problems. Client helped group brainstorm potential consequences of not having a support system. Group identified benefits of social support as building trust, less anxiety, less loneliness, different perspective, sense of purpose, resources, hope, and accountability. Client reported when he feels supported, he feels ?more fearless.? Client took an active during the group activity and was providing positive encouragement. Appeared to benefit from gaining awareness of barriers that keep people from seeking social support as well as identifying the benefits of increasing support. Client progressing AEB client?s report of being more active. Will continue IOP tx as client continues to endorse negative core beliefs that reinforce depression and anxiety.
--- NOTE | 2019-05-28 11:08 | BH.SGPN.GN ---
Behaviors/Verbalizations/Mental Status: [Pt alert and oriented, eye contact good, casually dressed, motor activity appropriate, speech normal rate and tone, mood anxious, euthymic, congruent affect, thoughts linear and intact, no evidence of delusions or hallucinations.] Client Response/Progress/Benefit: [Client active participant AEB client contributing to discussion, listened attentively to others and taking notes. Client worked with the group to make connections between barriers faced in the challenge activity and strategies for managing these barriers with utilizing social supports in daily life. Client reflected that a personal barrier in using current supports is feeling anxious about saying something or doing something embarrassing. Client contributed to discussion about the different types of support and benefits different types of support can provide. Client worked with the group to identify strategies for improving development of new supports and better utilization of current supports. Client identified he would like to improve occupational support by finding coworkers he feels comfortable with opening up to because he would be able to decrease work related anxiety and loneliness as a result. Client seemed to benefit from identifying a type of support he would like to improve upon and creating actionable steps to promote follow-through. Client to continue IOP level of care to prevent decompensation, increase use of healthy supports and a anxiety management skills.] Narrative Note: []
--- NOTE | 2019-05-28 14:42 | BH.MDN ---
Multi-Disciplinary Note - Note 30-min Individual Time Started:: 09:36 Date: 05/28/19 Purpose of session/treatment goals addressed:: Purpose of this session was to assess pt current symptoms, stressors, and treatment goal progress. Another purpose was to continue to discuss strategies for combating negative thoughts which reinforce depression and anxiety. Additional topics included: sleep hygiene and homework review. Eye Contact:: Good Motor Activity:: Appropriate Appearance:: Casual Speech:: Appropriate Mood:: Depressed Affect:: Congruent Thoughts:: Linear, Logical, No evidence of hallucinations/delusions noted Staff Interventions:: Therapist asked open-ended and furthering questions to elicit additional information regarding current sx, stressors, and treatment goal progress. Reviewed information discussed in previous session regarding negative core beliefs. Responded with empathic and supportive feedback to validate emotions and frustrations regarding ongoing depressive symptoms. Applied PA techniques to continue to promote change behaviors. Client Response:: Pt receptive of session, engaged throughout. Pt reported not completing homework from previous week due to having a really busy weekend. He indicated being especially tired today and is unsure as to why, but with further exploration was able to identify that his night time routine may have have an impact on sleep quality. Pt discussed often staying up until 1-2am and is usually on his phone prior to bedtime. Reports that he feels more energetic and productive at night and often creates new goals and aspirations for himself however finds that this motivation is no longer present upon waking. Pt expressed feeling motivated on Tuesday night, noting that he created goals to start going to the gym and work more; however, felt depressed in the moringing and ended up staying in bed until 1pm. Pt and therapsit discussed sleep hygiene and impacts this can have on mental health and reinforcing cycle of depression. Pt reports undertanding an indicated connecting with impact of sleeping in late on feelings of guilt and loss of motivation. Remains hesitent to change current sleep routine despite recognizing impact on mental health. Pt went on to indicate feeling his home environment is toxic to his mental health as it reminds me of all the bad stuff that happended here, sharing that his parent's house reminds him of his father's illness and other stressors. Pt able to recognize use of distorted thought patterns however uynable to identify specific distortions. Responded well to being challenged to apply CBT skills to potentially shift perspective about the house and identify positive memories experienced there as well. Reports willingness to complete thought challenge homework from previous week as well. Risks/Concerns:: No risk or concerns noted. Denies any suicidal ideations, plan, or intent as of this date 05/28/19. Progress Toward Goals/Plan:: Limited progress noted. Pt reports isolating on previous date due to feeling depressed upon waking and not having motivation to apply skills of opposite action of positive self-talk. Pt additionally reports ongoing difficulties with coping with negative thoughts about continuing to live in his parent's home and not accomplishing more with his life, however pt indicates not completing thought challenge homework specifically addressing negative core beliefs. Reports his current environment is a trigger and expressed feeling he can not do much to change this. Willing to work with therapist to identify ways he may improve his ability to cope with current circumstance and perception of environment. Will continue in IOP to maintain safety, prevent decompensation, stabilize mood, and improve daily functioning. Time Stopped:: 09:58
--- NOTE | 2019-06-01 09:03 | BH.SGPN.GN ---
Behaviors/Verbalizations/Mental Status: []Client alert and oriented, neatly dressed and groomed. Eye contact good. Motor activity appropriate. Speech within normal limits. Affect congruent, mood anxious. Thoughts linear, logical, no signs of hallucinations or delusions. Reviewed client?s symptom tracker, no risk for suicidal ideation, plan, or intent as of 06/01/19 as client's scores were within his baseline. Client Response/Progress/Benefit: []Client responded well to session, receptive to positive feedback from peers. Client reports feeling ?anxious? today. Client shared he has made some progress towards his treatment goals, but he continues to feel anxious about his future. Client stated he is mostly worried about being single and finding a partner. The group provided emotional support and alternative, positive perspectives to being single. The group reminded client that being single means time to work on loving oneself. Client was receptive and thankful for feedback. Client?s mental health wins today included practicing sitting with uncomfortable emotions rather than jumping to conclusions. Client reported he was also able to stop himself from engaging in his safety behavior of reassurance seeking via researching. Appeared to benefit from connecting with peers and reflecting on application of coping skills. Will continue IOP tx to promote use of healthy emotional regulation coping skills and further decrease negative self-talk that reinforces depression.
--- NOTE | 2019-06-01 10:17 | BH.SGPN.GN ---
Behaviors/Verbalizations/Mental Status: []Client alert and oriented, casually dressed and groomed. Eye contact fair. Motor activity appropriate. Speech within normal limits. Affect congruent to topic being discussed, mood euthymic. Thoughts linear, logical, no signs of hallucinations or delusions. Client Response/Progress/Benefit: []Client responded well to session, attentive and participating in small group discussion. Group identified the benefits to setting boundaries as well as the consequences of not setting healthy boundaries. Client engaged during discussion of the different types of boundaries and engaged in the self-assessment activity. Client stated it's freeing to have healthy sexual boundaries so everyone is on the same page. Client able to recognize his own mental health suffers when he does not set boundaries. Client seemed to benefit from increased awareness how poor boundaries can negatively impact mental health. Client to continue IOP tx to continue use of healthy coping skills, prevent decompensation, and continue to challenge distorted thoughts. Narrative Note: []
--- NOTE | 2019-06-01 11:22 | BH.SGPN.GN ---
Behaviors/Verbalizations/Mental Status: [Client alert and oriented, casual dress - wearing winter cap throughout group, hygiene appropriate. Eye contact good. Motor activity appropriate. Speech within normal limits. Affect congruent, mood euthymic. Thoughts linear, logical, no signs of hallucinations or delusions. ] Client Response/Progress/Benefit: [Pt responded well to session, active participant and willing to provide insight throughout. Pt did well to engage in the boundary self-assessment activity and worked with group to further process. Pt discussed that he has been becoming much more aware of how his difficulties in relying on others to ?fix things? or create his happiness have impacted his ability to care for himself when others set boundaries.. Noted that he has been practicing setting boundaries with himself in this area and respecting others personal boundaries as well. Pt shared increase insight regarding unhealthy boundaries and increased depression and anxiety as a result. Appeared to benefit from group discussion on strategies for further improving personal boundaries. Identified wanting to improve his ability to set and maintain healthy emotional boundaries, specifically in regard to how certain topics of conversations impact him. Progress noted in pt ability to identify impact of current boundaries on mental health progress and relationships. Client to discharge IOP tx on this date and recommended continued treatment on outpatient basis in order to maintain gains made, improve emotion regulation, and continue to promote healthy change behaviors. ] Narrative Note: []
--- NOTE | 2019-06-01 14:11 | BH.MTP_ITS ---
Treatment Plan Review Date of Admission:: 05/07/19 Date of Treatment Plan Review:: 06/01/19 Admitting Diagnoses:: Major depressive disorder recurrent severe without psychosis, generalized anxiety disorder Current Diagnoses:: Major depressive disorder recurrent severe without psychosis, generalized anxiety disorder Patient's Response to Treatment:: Client has responded well to treatment so far as shown by his report of decreased depression and anxiety related sx. Pt notes he is making strides in improved ability to implement healthy coping skills for managing emotions and reducing negative self-talk. Pt has done well to remain engaged in tx environment and has provided overall positive contributions. Pt has remained consistent with attendance and often comes to group early. Pt initially reported feeling overwhelmed and uncomfortable in tx environment due to feeling he was taking on fellow participants emotions and problems as his own. Since continuing in the program, he has done well to separate himself from other?s emotions and provide supportive feedback without having this negatively impact his own mental health. Pt is increasingly willing to volunteer and share during group discussion. Pt is a supportive and an active group participant. He shared ongoing difficulties in connecting with peers but does well to continue to try to make connections and communicate positively with others. In individual sessions, client is receptive to feedback and exploration of his stressors, thoughts, and behaviors to continue to contribute to mental health related sx. Pt has some issues in remaining consistent with homework however has been able to more successfully begin implementing healthy coping skills to manage his anxiety and depression. At admission, client reported symptoms of anxiety, depression, low self-esteem, poor motivation, passive thoughts of , and isolation that interfered with daily functioning. At review client reported reduced anxiety, decreased negative self-talk, reduced isolation, and no longer indicates passive thoughts of . Pt shared he is looking forward to continuing to make gains in improving self-confidence and increasing healthy supports. Pt reports increased issues with sleep and muscle pain which has begun to impact continued mental health treatment progress as he has experienced increased frustration and issues with memory as a result. Pt has seen an increase in DSM-5 scores in these areas; however has displayed a decrease in scores in the areas of depression by 37% and anxiety by 12% at time of review. Status of Current Problems and Symptoms: Client recently reported an exacerbation of physiological symptoms related to muscle pain and poor sleep. Client self-reports a belief his symptoms may be related to poor sleep hygiene and napping throughout the day which impacts ability to sleep at night. Client plans to begin incorporating more consistency in nighttime sleep routine. Additionally, client continues to struggle with negative thinking that reinforces poor self-esteem levels and anxiety. Client reports thoughts of I?m not good enough and he reports significant difficulties in challenging self- comparison related thoughts. Additionally, client has shown strides in reducing isolation. However, when he reports when he does spend time with others he struggles to truly feel connected and begins to second-guess himself as a result. Problem #1 Problem Name:: Reduce depression and hopelessness causing passive thoughts of deat Status of Goals:: Objective-1 partially complete. Client can identify depression related triggers and warning signs. He is able to identify potentially helpful coping mechanisms for reducing depression and reports implementing some coping skills to reduce symptoms though struggles in consistently doing so. Client completed the DSM-5 and depression sx have reduced by 37%. Objective 2-partially complete. Client can identify some common distorted thought patterns and mistaken beliefs. He reports some ability to reframe cognitive distortions when able to recognize them but does not always recognize distortions until afterwards. Client can continue to work on this goal, though, as she continues to struggle with reframing deep-rooted core beliefs. Team Recommendations:: Client encouraged to continue working on this treatment goal to reinforce healthy coping skills and continue to further decrease symptoms of depression. Client and therapist currently working on small confidence building goals, thought challenging, and practicing daily self-care. Will continue IOP tx to maintain gains and continue to decrease depressive sx. Problem #2 Problem Name:: Reduce ruminating thoughts causing anxiety and panic Status of Goals:: Objective 1-partially complete. Client reports using self-talk and mindfulness to manage anxiety sx. Reports wanting to engage in small expos ure goals to further increase self-confidence and reduce anxiety about social situation. Client reports reduced isolation and increased social interaction with friends. However, client?s social interactions are inconsistent and Client can benefit from continuing to work on engaging in activities outside of home or work environment. Team Recommendations:: Client encouraged to continue working on this treatment goal to reinforce healthy coping skills to reduce social anxiety and isolation. Client and therapist currently working on reinforcing affirmations to reduce anxiety and set small exposure goals to confront anxiety producing situations rather than avoid them. Continued IOP tx recommended for further progress in this area.
--- NOTE | 2019-06-04 09:03 | BH.SGPN.GN ---
Behaviors/Verbalizations/Mental Status: [Eye contact is good. Motor activity is appropriate. Appearance is casual. Speech is Appropriate. Mood is anxious, euthymic. Affect is congruent. Thoughts are linear and logical. No evidence of psychosis. Reviewed daily check in sheet and no reports of suicidal ideations or intent.] Client Response/Progress/Benefit: [Pt was an active participant in group discussion, providing input and supportive feedback throughout. Emotion for today is ?anxious, but confident?. He shared that actively applying positive self-talk and working to challenge his perspective when feeling negative has aided in improving self-confidence levels. Pt shared current mental health wins include agreeing to stay an extra hour past his usual work shift and not feeling anxious about the change in routine when doing so. Additional win as reminding himself to use radical acceptance concepts when becoming triggered by a photo of his ex with another hasmukh. Discussed reminding himself ?This is okay, I can be happy again with someone else?. Went on to indicate plans to further increase confidence levels by obtaining a gym membership. Progress noted per pt report. Benefited from group support, encouragement, and feedback. Will continue in IOP to prevent decompensation, decrease anxiety, and increase healthy coping skills.] Narrative Note: []
--- NOTE | 2019-06-04 10:20 | BH.SGPN.GN ---
Behaviors/Verbalizations/Mental Status: [] Eye contact is good. Motor activity is appropriate. Appearance is casual. Speech is Appropriate. Mood is euthymic. Affect is full. Thoughts are linear and logical. No evidence of psychosis Client Response/Progress/Benefit: [] Pt was an active participant in group discussion and activity. Engaged and provided insight on today's quote. Worked with group to define pitfalls in mental health which group identified were; hidden or unsuspected obstacles, emotional traps, when we defeat ourselves, and unforeseen obstacles which impact progress. Group discussed the impacts of pitfalls which can cause one to; give up, revert back to unhealthy coping, isolate, define oneself as a failure. Pt was most active during the activity and took on role as a leader with peers. Group briefly discussed the emotions and pitfalls which occurred during the activity noting that it caused anxiety, anger, fear, and at times they wanted to give up. Pt was able to relate the activity to his own MH and emotions when he has encounter a pitfall which was beneficial in in terms of insight and awareness. Narrative Note: []
--- NOTE | 2019-06-04 11:21 | BH.SGPN.GN ---
Behaviors/Verbalizations/Mental Status: []Client alert and oriented, neatly dressed and groomed. Eye contact good. Motor activity appropriate. Speech within normal limits. Affect congruent, mood anxious. Thoughts linear, logical, no signs of hallucinations or delusions. Client Response/Progress/Benefit: []Client receptive of session, attentive and participating throughout session. Client helped group process the activity and how it connects to pitfalls in real life. Client completed a worksheet where he identified personal pitfalls impacting mental health progress. Identified pitfalls as: over-researching and comparing himself to others. Client recognized that in order to become less vulnerable to pitfalls it takes self-awareness and healthy coping skills. Client reported belief he has been doing well to avoid his pitfalls, but he wants to continue to work on keeping track of his mental health wins. Benefited from identifying personal pitfalls and strategies to overcome these pitfalls. Progress noted as client self-reports improved mood stability, but he continues to endorse poor self-esteem and negative core beliefs.? Narrative Note: []
--- NOTE | 2019-06-04 13:51 | BH.MDN_ITS ---
Multi-Disciplinary Note - Note 60-min Individual Time Started:: 12:24 Date: 06/04/19 Purpose of session/treatment goals addressed:: Purpose of this session was to assess pt current symptoms, stressors, and treatment goal progress. Another purpose was to discuss cycle of depression and identify strategies for reducing isolation and increasing self-confidence. Additional topics included: homework review. Eye Contact:: Good Motor Activity:: Appropriate Appearance:: Neat, Casual Speech:: Appropriate Mood:: Anxious, Depressed Affect:: Congruent Thoughts:: Linear, Logical, No evidence of hallucinations/delusions noted Staff Interventions:: Therapist asked open-ended and furthering questions to elicit additional information regarding current sx, stressors, and treatment goal progress. Provided empathic responses and supportive feedback as pt discuss ed ongoing stressors contributing to mental health sx. Provided psychoeducation regarding cycle of depression and impact of isolation in maintaining depression and reinforcing negative core beliefs. Applied [place] techniques to continue to promote change behaviors. Client Response:: Pt receptive of session, engaged throughout and openly discussing thoughts, feelings, and observations. Pt reported he continues to struggle with sleep as he has been staying up later due to wanting to wait until the rest of his house is asleep so he has time to himself. Pt expressed knowing this impacts his mood negatively the next day as he tends to sleep in and then feels guilty about doing so; however, reports limited desire to adjust current sleep routine as he feels having the time to himself at night is more valuable. Pt reports sleeping much of the day yesterday and indicated that this was due to being up too late, as well as taking on more hours at work. He noted that he feels like adding on more hours to his workload will contribute to feeling more productive and therefor less depressed but is concerned he may just be distracting himself and end-up burning himself out with work as well. Pt and therapist discussed pros and cons of adding more hours. Additionally, discussed alternative ways to reduce isolation and engage in activities that provide meaning. Reviewed how engagement in meaningful activities can improve sense of purpose and in-turn self-confidence. Pt expressed not knowing what he enjoys or what might be fun as nothing feels enjoyable. Receptive of discussion on opposite action as a means of reducing apathy. Pt identified that going for hikes and spending time with friends are things he used to enjoy. Noted that he could make plans this week to go on a hike with a friend or out to dinner. Expressed that he would additionally continue to work on application of positive affirmations to motivate himself to follow-through with identified plans. Risks/Concerns:: No risk or concerns noted. Denies any suicidal ideations, plan, or intent as of this date 06/04/19. Progress Toward Goals/Plan:: Limited progress noted. Pt reports continuing to engage in isolating behaviors and feels he is not able to connect well with others. Denies attempting to engage in activities where he may be around others or find pleasure in and instead is spending a majority of his time sleeping or working. Displays insight into how his behaviors contribute to maintaining depression however struggles with motivation to do anything else. Reports limited socialization as he does not feel he connects well with current supports but is ambivalent about expanding support [place]. Continues to report negative self-talk, however expressed that beginning to apply daily affirmations is improving ability to challenge these thoughts. Willing to work with therapist to identify ways he may improve his ability to reduce depression via decreasing isolation. Will continue in IOP to maintain safety, prevent decompensation, stabilize mood, and improve daily functioning. Time Stopped:: 13:07
--- NOTE | 2019-06-08 09:05 | BH.SGPN.GN ---
Behaviors/Verbalizations/Mental Status: [Client alert and oriented, casual dress, hygiene tended to. Eye contact good. Motor activity appropriate. Speech within normal limits. Affect congruent, mood euthymic. Thoughts linear, logical, no signs of hallucinations or delusions. Reviewed client?s symptom tracker, no signs of suicidal ideation, plan, or intent as of today. ] Client Response/Progress/Benefit: [Pt was receptive of session, actively listening throughout and providing input to the group. Emotion for today is ?content?. He indicated that this was due to increased ability to challenge negativity and focus on the positives as well as recognize personal progress he has made since beginning IOP tx. Pt able to identify mental health wins contributing to progress levels. Wins identified as following through with his goal to get a gym membership and shared taking this one step further and actually going to the gym 3 times this week. Additional win noted as accomplishing another goal in which he challenged himself to times this week. Pt appeared to benefit from the supportive feedback and encouragement provided by the group. Pt progress noted in reported application of skills learned outside tx environment as well as self-report of decrease mental health sx. Recommended continued tx to prevent decompensation, continue to increase self-esteem and reduce anxiety, as well as promote healthy change behaviors. ] Narrative Note: []
--- NOTE | 2019-06-08 10:30 | BH.SGPN.GN ---
Behaviors/Verbalizations/Mental Status: []Client alert and oriented, neatly dressed, hygiene tended to. Eye contact good. Motor activity appropriate. Speech within normal limits. Affect congruent, mood euthymic. Thoughts linear, logical, no signs of hallucinations or delusions. Client Response/Progress/Benefit: []Pt receptive to session, provided input and remained an active listener throughout discussion on stress. Able to brainstorm with the group positive and negative aspects of stress on physical and mental health. He participated in identifying current stressors impacting mental health. Pt's current stressors include: work, relationships, and financial problems. Pt stated when he gets overwhelmed with stress he will shut down and isolate. Appeared to benefit from gaining awareness of own current stressors and learning about the impact stress has on overall wellbeing. Progress noted in improved ability to identify impact not dealing with stressors can have on his mental health and wellbeing. Recommended continued IOP tx to continue use of healthy coping skills, maintain gains, and prevent decompensation. Narrative Note: []
--- NOTE | 2019-06-08 11:27 | BH.SGPN.GN ---
Behaviors/Verbalizations/Mental Status: []Client alert and oriented, neatly dressed and groomed. Eye contact good. Motor activity appropriate. Speech within normal limits. Affect congruent, mood euthymic. Thoughts linear, logical, no signs of hallucinations or delusions. Client Response/Progress/Benefit: []Client was an active participant throughout session, providing good feedback and encouragement during the activity. Client worked with the group to complete the challenge activity and was providing ideas. Client was able to identify barriers encountered that may also impact managing stress in daily life. Group identified barriers of stress management to include taking on the biggest stressor at once, not asking for help, and avoidance. Client acknowledged that he often tried to find loopholes during the activity and the group reported they do this in their daily lives as well. Client actively listening during discussion about the 4 A's of managing stress. Expressed wanting to increase awareness of which strategies would be best for improving each of her identified stressors. Client seemed to benefit from increased awareness of the impact of stress on mental health and increasing repertoire of stress management strategies. Progress noted as client reports reduced intensity of symptoms. However, client continues to struggle with negative self-talk that reinforces depression and anxiety. Narrative Note: []
--- NOTE | 2019-06-12 09:00 | BH.SGPN.GN ---
Behaviors/Verbalizations/Mental Status: [] Eye contact is good. Motor activity is appropriate. Appearance is neat. Speech is Appropriate. Mood is euthymic. Affect is full. Thoughts are linear and logical. No evidence of psychosis. Reviewed daily check in sheet and no reports of suicidal ideations or intent. Client Response/Progress/Benefit: [] Pt participated at times in group discussion. Emotion for today is content. Shared some mental health wins which positively impacted his mental health. More consistent use of self-care which has impacted overall mood as well. Obtained a gym membership and went running yesterday. Notes that his thoughts continue to be a significant stressor as they are erratic. He is working on challenging them however admits that this does not always work. Group provided feedback and suggestions on challenging thoughts which was beneficial. Progress noted per pt report. Will continue in IOP to prevent decompensation, maintain gains, and increase healthy coping. Narrative Note: []
--- NOTE | 2019-06-12 10:02 | BH.SGPN.GN ---
Behaviors/Verbalizations/Mental Status: []Client alert and oriented, neatly dressed and groomed. Eye contact good. Motor activity appropriate. Speech within normal limits. Affect congruent, mood euthymic. Thoughts linear, logical, no signs of hallucinations or delusions. Client Response/Progress/Benefit: []Client was attentive and participating during discussion. Client participated in discussion of the quote and shared belief that people do not always have the choice of their circumstances, but they have the choice of how they respond. The group worked together to identify barriers that keep one from choosing a new and healthier path to mental wellness which included; unhealthy habits, fear of failure, procrastination, stigma, lack of supports, and negative thinking. Attentive during psychoeducation on the chapters of life. Client was attentive during discussion, providing insight to distinguishing factors in each chapter. Client shared to choose a different path, one needs awareness and ?to be proactive.? Benefited from increased awareness and education on barriers to choosing new wellness paths and chapters of life. Progress noted as client reports improved ability to cope with triggers, but he continues to report chronic negative core beliefs. Narrative Note: []
--- NOTE | 2019-06-12 13:51 | BH.MDN ---
Multi-Disciplinary Note - Note 30-min Individual Time Started:: 11:53 Date: 06/12/19 Purpose of session/treatment goals addressed:: Purpose of this session was to assess current symptoms, stressors, and review progress in IOP. Another purpose was to discuss strategies for continuing to improve self-confidence. Eye Contact:: Good Motor Activity:: Appropriate Appearance:: Neat, Casual Speech:: Appropriate Mood:: Euthymic Affect:: Full Thoughts:: Linear, Logical, No evidence of hallucinations/delusions noted Staff Interventions:: Therapist asked open-ended and furthering questions to gather information regarding pt current sx, stressors, and treatment goal progress. Provided supportive feedback and commended pt progress in applying skills learned. Reviewed and aided pt in processing homework from previous session. Provided psychoeducation on self-compassion in improving confidence levels. Utilized [place] techniques to continue to elicit change behaviors and identify strategies for further reducing anxiety and increasing self-confidence levels. Client Response:: Pt receptive of session and actively engaged throughout. He discussed feeling as though his emotions have been normal and well regulated for the past few weeks which has been a positive adjustment for him. Pt went on to describe noticable improvements in his overall mood and ability to enjoy the small things in life. Went on to indicate successfully completing homework from previous session to step outside his comfort zone and spend 5 minutes speaking ot someone he would not normally speak to. 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 Identified this as a positive experience and was surprised by how easily the conversation went and his ability to make connections with this person. Noted increased positive thoughts and confidence in himself as a result. Pt went on to reflect on the importance of being willing to challenge his perspective, reframe negative thoughts, and start engaging in opposite action on reducing his mental health sx. Additionally noted challenging himself to do the anxious thing and ended up stepping out of his comfort zone and asking someone on a date as a result. Shared feeling more confident in his ability to cope with and overcome fears by successfully doing so. Pt noted that despite significant strides forward in past several weeks, he continues to struggle with self-comparission and low confidence levels. Shared he is trying to challenge these thoughts but continues to struggle. Remainder of session was spent discussing identifying positive attributes when catching himself focusing on what he believes to be faults, as well as identifying a positive mantra to say when beginning to focus on the negative. Pt indicates feeling like he will be ready to discharge next week. Given progress levels and reports of decreas mental health sx, therapist is in agreement to have pt step down from IOP next week following completion of mental health sx maintenance plan. Risks/Concerns:: None reported. Pt denies any active SI, plan, or intent as of 06/12/19. Progress Toward Goals/Plan:: Progress noted. Pt reports reduced levels of anxiety and increased ability to cope with ruminating or anxiety provoking thoughts. Additionally indicated improved confidence levels and incresed enjoyment of activities he used to find enjoyable. Pt continues ot struggle with significant self-depricating talk and distorted thoughts associated with body image. He would do well to continue in IOP tx to reduce negative self-talk and complete aftercare coping plan to maintain gains following projected discharge next week. Time Stopped:: 12:25
== END 2019-06-14 23:59 ==
LOC: BHIOP 09:00
PROVIDERS: Referring Provider Psychiatry & Neurology Psychiatry; Visit Provider Psychiatry & Neurology Psychiatry
DX: F33.2 Major depressive disorder, recurrent severe without psychotic features (principal); F41.8 Other specified anxiety disorders
CPT/HCPCS: H0035; H2012; H2020; 90832; 90834

== ENCOUNTER 2019-06-19 09:00 | Outpatient (RCR) | payer MEDICAID, SELFPAY ==
--- NOTE | 2019-06-19 09:07 | BH.SGPN.GN ---
Behaviors/Verbalizations/Mental Status: []Client alert and oriented, neatly dressed and groomed. Eye contact good. Motor activity appropriate. Speech within normal limits. Affect congruent, mood euthymic. Thoughts linear, logical, no signs of hallucinations or delusions. Reviewed client?s symptom tracker, no risk for suicidal ideation, plan, or intent as of 06/19/19. Client Response/Progress/Benefit: []Client responded well to session, connecting with peers and attentive throughout. Client reports feeling ?content? today. Client identified his mental health wins today sharing he has been exercising and cut his mile run down by a minute. Client reported exercise betters his mental health. Client stated overall he has been feeling ?neutral? and client shared there have not been many significant stressors. Client?s stressor today is that his father?s health is continuing to decline which has an impact on client?s mental health. The group offered supportive statements to client. Client recognized that he has the right to self-care and setting boundaries with his family, despite his father?s poor health. Appeared to benefit from connecting with peers. Progress noted as client reports improved mood stability since admission. Will continue IOP tx to promote use of healthy coping skills and maintain gains. Narrative Note: []
--- NOTE | 2019-06-19 10:20 | BH.SGPN.GN ---
Behaviors/Verbalizations/Mental Status: []Client alert and oriented, neatly dressed and groomed. Eye contact good. Motor activity appropriate. Speech within normal limits. Affect congruent to topic being discussed, mood euthymic. Thoughts linear, logical, no signs of hallucinations or delusions. Client Response/Progress/Benefit: []Pt passive participant AEB pt providing limited input during discussion however appeared to listen attentively to peers. Pt appeared to connect with others comments about the negative impact of defining self by mental illness. Group identified social stigma can come from how the media, society, and upbringing portray mental illness. Group identified media and society portray mental health as: dangerous, negative, not good enough, abnormal, and romanticize it. Pt seemed to shake his head in agreeing with others that mental health stigma contributes to people hiding the fact they have any mental health problems out of fear of judgment. Pt seemed to benefit from increased awareness of how societal and internal mental health stigma can impact functioning. Pt progressing with reporting decreased depression and improved utilization of healthy coping skills outside treatment environment. Pt to continue IOP level of care to maintain gains and prevent decompensation. Narrative Note: []
--- NOTE | 2019-06-19 11:25 | BH.SGPN.GN ---
Behaviors/Verbalizations/Mental Status: [Client alert and oriented, casually dressed and appropriately groomed. Eye contact good. Motor activity appropriate. Speech within normal limits. Affect congruent, mood euthymic. Thoughts linear, logical, no signs of hallucinations or delusions. ] Client Response/Progress/Benefit: [Client responded well to session, engaged in activity, actively listening as well as providing input to discussion. Group identified the benefits of addressing stigma which included; increased self-confidence, decreased feelings of shame or unworthiness, improved relationships, and increased willingness to ask for help. Client helped the group identify thoughts and behaviors people engage in that reinforce stigma. Client discussed that self-comparison and unrealistic expectations of self have influenced his own opinion on mental health and reinforced stigma. Group brainstormed strategies to combat social and perceived stigma which included; changing personal language used, sharing positive mental health related media, communicating with supports, attending therapy, and increasing psychoeducation of self and others to reduce labeling behaviors. Client reported he will practice increasing use of mental health coping skills to reduce anxiety and improve self-confidence which will aid in reduction of avoiding talking about his mental health needs. Appeared to benefit from increasing awareness of impact of stigma on mental health and identifying strategies for beginning to combat self and social stigma related to mental health. Client has made significant progress and is to discharge from [facility] tx at this time. Recommended ongoing outpatient tx to increase consistent use of internal coping mechanisms, maintain gains made, and prevent decompensation.] Narrative Note: []
--- NOTE | 2019-06-20 08:32 | BH.IGGP_ITS ---
Aftercare Plan - Demographics Treatment End Date:: 06/20/19 Psychiatrist:: Apryl Foster Psychiatrist Office #:: [phone] [facility] Therapist:: Lizzy Ballard Therapist Phone #:: [phone] - Medications Home Medications: Home Medications Fluoxetine [Prozac] 20 mg PO DAILY 05/09/19 - Plan Details Progress/Aftercare Plan Details:: Since admission, client has demonstrated progress with improving his ability to better manage symptoms of depression and ruminative anxiety. He has displayed progress in his ability to begin implementing regular use of positive affirmations and self-talk statements when struggling with negative thoughts or ruminations. Client is additionally making progress in his ability to challenge himself to incorporate healthy skills for reducing anxiety and self-doubt. In the time that he has been in the IOP program, Ang has reported and displayed an increase in flexible thinking and ability to enjoy the present moment. He has successfully begun a regular exercise routine, increased efforts to reach out to supports, and reports socializing more consistently as result. He is additionally displaying increased ability to implement internal coping skills of thought challenging, setting small daily goals, and practicing opposite action. Client reports improved self- esteem, motivation, and is engaging in activities he enjoys. Client reports increased awareness of warning signs and thoughts/behaviors that had previously maintained depression and is taking active steps to refrain from engaging in such behavior. Notes improved functioning and denies any suicidal ideations, plan, or intent. Denies any passive thoughts of or daily panic attacks. Client continues to indicate some problems with self-doubt and intrusive thinking, he would benefit from outpatient counseling services to continue focus on consistent skill application and maintain gains made. Strategies for Success:: 1. You have increased your awareness considerably in this program which is the first step in improving your mental wellness! Remember to keep working on it, progress is a process! 2. Reach out and communicate with supports! Even when you don't feel like it. 3. Remind yourself that YOU CAN DO THIS! Confidence goes a long way. 4. Don't sell yourself short, you ARE making progress, celebrate it. 5. Challenge the negative thoughts! 6. SELF-CARE! You can't pour from an empty cup. 7. Keep challenging yourself to use your skills to do the anxious thing! - Appointments Appointments/Referrals to Other Services:: Client is currently established with Cielo at [facility] for outpatient counseling and Dr. Garcias for psychiatry services. He is recommended to continue to follow-up with outpatient counseling and working on challenging himself to ?do the anxious thing?.
--- NOTE | 2019-06-20 09:05 | BH.SGPN.GN ---
Behaviors/Verbalizations/Mental Status: []Client alert and oriented, neatly dressed and groomed. Eye contact good. Motor activity appropriate. Speech within normal limits. Affect full, mood euthymic. Thoughts linear, logical, no signs of hallucinations or delusions. Reviewed client?s symptom tracker, no risk for suicidal ideation, plan, or intent Client Response/Progress/Benefit: []Pt engaged in session as shown by pt openly expressing thoughts and emotions. Pt identified emotion for today as happy. Pt identified a mental health positive was leaving IOP yesterday and completing a necessary task for his car instead of giving into his thoughts of just wanting to go home. Pt recognized by using the skill of opposite action it made him feel more accomplished. Pt stated another mental health positive is today being his last day in IOP. Pt reported when he first started IOP he was skeptical the program would help him, but he is glad he stuck with it because he can note progress in all areas of my life. Pt seemed to benefit from reflecting on his treatment progress since starting IOP. Pt has made significant progress since starting IOP and no longer meets medical necessity for IOP level of care. Narrative Note: []
--- NOTE | 2019-06-20 09:10 | BH.MDN_ITS ---
Multi-Disciplinary Note - Note 30-min Individual Time Started:: 10:56 Date: 06/20/19 Purpose of session/treatment goals addressed:: The purpose of this session was to review client's progress and discuss strategies that will promote continued mood stability and maintain gains made in IOP. Another goal was to discuss discharge recommendations. Eye Contact:: Good Motor Activity:: Appropriate Appearance:: Casual Speech:: Appropriate Mood:: Euthymic, Anxious Thoughts:: Linear, Logical, No evidence of hallucinations/delusions noted Staff Interventions:: Therapist used open-ended questions to elicit information and further explore client's thoughts and perception of personal progress throughout IOP program. Therapist reviewed with pt his personal supports, warning signs, and coping skills aimed at continuing to promote gains and prevent setbacks. Therapist discussed aftercare plan with client and used strengths-perspective to highlight and empower client on the goals client accomplished. Therapist discussed the benefits of ongoing maintenance and use of daily coping skills. Client Response:: Client responded well to session, open to meeting with therapist. Client reflected on personal progress since starting IOP and shared belief he has improved with using opposite action when identifying low or sad emotions to prevent falling back into depression cycle. Client self-reports improved communication and interaction with supports and went on to discuss making a new friend whom he feels comfortable reaching out to when needing support. Client wet on to discuss experiencing less distorted thinking, feeling more hopeful, and is now able to view changes in life as both positive and empowering rather than depressing and fearful. Client reported he feels more enjoyment in ?the small things? and is engaging in activities he enjoys, such as going for walks or to the movies, on a daily basis. Client shared he has been working on catching unhealthy or overly negative thoughts and challenging them which has prevented client from ?backsliding? over the past week despite experiencing several new stressors related to his father?s worsening physical healthy. Client continues to work on challenging his perspective and engage in prosocial behaviors. Client reviewed coping skills that will promote gains and mood stability. Client's coping skills included; opposite action, self-care, communicating with supports, deep breathing, going for hikes, reframing, and challenging himself to ?do the anxious thing?. Client?s DSM-5 scores decreased by 48% from admission to discharge. Client self-reported progress in reduced symptoms, improved relationship with supports, decreased anxiety, and feeling more hopeful. Risks/Concerns:: Client denies any active suicidal ideations, plan, or intent as of 06/20/19. Progress Toward Goals/Plan:: Client to discharge from [facility] today as he has made progress toward treatment goals as evidenced by reduced DSM-5 scores and self- report of improved mood stability and reduced depression. Client also reports increased prosocial behaviors. Client acknowledges that ongoing progress will be determined by client?s continued application of coping skills and perspective challenging. Client is currently established with Cielo at [facility] for outpatient counseling and Dr. Garcias for psychiatry services. He is recommended to continue to follow-up with outpatient counseling and working on challenging himself to ?do the anxious thing?. Time Stopped:: 11:25
--- NOTE | 2019-06-20 11:30 | BH.SGPN.GN ---
Behaviors/Verbalizations/Mental Status: [Client alert and oriented, casual dress, hygiene tended to. Eye contact good. Motor activity appropriate. Speech within normal limits. Affect congruent, mood euthymic. Thoughts linear, logical, no signs of hallucinations or delusions.] Client Response/Progress/Benefit: [Pt remained an active participant throughout AEB engagement in both activity and discussion potions of session. Pt did well to challenge himself to complete the group activity and incorporate anger management/emotion regulation skills in order to do so. Pt actively encouraged his partner when becoming frustrated throughout. He worked with the group to process and identify the various barriers faced in the activity as well as skills used to successfully complete the task at hand without becoming dysregulated or overwhelmingly angry. Pt identified barriers impacting his own ability to better manage anger related symptoms which included: pressure when struggling to meet expectations of others/self, difficulties managing responsibilities, and communication difficulties. Pt appeared to benefit from discussion regarding potential benefits of anger and brainstorming with the group potential strategies for means of harnessing anger in healthy ways. Pt identified plans to begin using more self-compassion strategies as a means of decreasing self-induced pressure and in turn improve coping with anger related sx. Recommended continued IPO txt to reduce mental health sx, continue to promote emotion regulation, and prevent decompensation.] Narrative Note: []
--- NOTE | 2019-06-20 12:19 | PCM.BH.PN_ITS ---
Progress Note Progress Note: History of Present Illness/Interim History: [] Patient is a 23-year-old single male with a history of depression and anxiety who is been participating in the [place] IOP program since April 2019. He states that he feels he is really benefited from doing the IOP program at [facility]. He said that his mood remains a little down at times but his depression is much better. He states that his anxiety is also much improved due to medication and also due to techniques he is learned in the IOP program to manage his anxiety and his worrying. He has begun exercising with weights and treadmill and this he feels also has helped his mood and anxiety. His weight has stabilized and he is no longer losing weight. He states he is not waking up panicky anymore and this is really helped him improve his mindset. He denies any suicidal or homicidal thoughts. Current Psychiatric Medications: [] Prozac 30 mg p.o. daily (his outpatient psych provider increased it about 1 week ago and he prefers to take it 10 mg p.o. 3 times daily). He does not want to take it once daily but he knows that he could do that. He is also on vitamin D and B12. Mental Status Examination: [] Patient is a 23-year-old male who appears normal for stated age. He is casually dressed and groomed with good hygiene. Eye contact is good and speech is normal rate and rhythm, fluent with no pressure. He has a slight lisp when he speaks. Mood is overall euthymic and affect is full and consistent with euthymia. Thought process: Goal-directed and organized. Thought content: He no evidence of suicidal or homicidal ideation. No thoughts of . Judgment is intact and insight is good. Im pulsivity is low. 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 Plan: [] We will continue the IOP program at [facility]. After discussion with staff it feels that he has made progress and if he continues to do well he will be possibly discharged at the end of this week. He saw his outpatient psych provider and they increased his Prozac to 30 mg p.o. daily less than a week ago. He felt safe during the interview and if it any time he does not feel safe he will contact his psychiatric providers or the IOP program or go to the emergency room. He understands the risks, side effects, possible complications of the medications and he understands and accepts these.
--- NOTE | 2019-06-20 15:29 | BH.DS_ITS ---
Discharge Summary - Demographics Date of Admission:: 05/07/19 Discharge Date: 06/20/19 Presenting Problems at Admission:: Pt is a 23-year-old male with a history of depression and anxiety. Pt reported worsening symptoms for 4-6 weeks prior to [facility] admission. Pt reported symptoms increased after his girlfriend of 5 years ended the relationship. Additional stressors included the recent loss of his grandmother and family dog, as well as his father?s ongoing medical concerns related to a cancer diagnosis. At time of admission to [facility], pt endorsing increased depression, worthlessness, hopelessness, lack of motivation, anhedonia, low energy, fatigue, decreased appetite, poor concentration, forgetfulness, and passive thoughts of . Pt additionally reported having fleeting suicidal ideation without plan or intent. Denies active SI, plan, and intent. Pt reported intrusive thoughts, rumination, and panic attacks. Panic is often exacerbated when away from home. At admission, pt?s symptoms were continuing to interfere with his social, occupational, and familial functioning. Discharge Diagnoses:: Major depressive disorder recurrent severe without psychosis, generalized anxiety disorder Reason for Discharge:: Client has demonstrated significant progress towards treatment goals as shown by reported reduced depression and anxiety as well as reduction on scores of DSM-5 cross-cutting analysis. Pt does not report any active suicidal ideations, and indicates no longer experiencing daily panic attacks. Reports improved mood stability. Client no longer meets criteria for [facility] level of care and is recommended to sep donw to individual outpatient treatment at this time. - Treatment Progress During Treatment & Response: Client responded well to treatment as shown by his overall consistent attendance, active participation in both group activities and discussion, and reduction of DSM-5 symptoms. Client started off quiet reporting reluctance to engage in group sessions and skeptical of effectiveness of group therapy, but very quickly became more engaged. Client often provided insight to discussion, encouraged others, and took notes during group sessions. In individual sessions, client was open with his thoughts and concerns, receptive to learning new coping skills, willing to challenge his own perspective, and was engaged in the treatment process. Client demonstrated improvement in overall consistency of application of coping skills outside of group and was motivated throughout treatment. He noted actively utilizing positive self-talk and opposite action when struggling with anxiety and negative thoughts. Client self-identified his progress as increased self-confidence, reduced panic symptoms, less depression, less avoidance, no suicidal ideations, and improved ability to identify change as an important and necessary part of living. He reports increased optimism and excitement about his future. Client also sees progress in his increased desire to connect with others and begin developing new friendships. At discharge, client?s DSM-5 symptom scores decreased by 48%. Client?s DSM-5 scores for depression decreased, from 8/8 at admission to 4/8 at discharge. Additionally, client?s thoughts of harming himself decreased from admission to discharge going from 1/4 to 0/4. Client?s anxiety has decreased since admission as well going from 03/26 to 11/24 at [facility]. Client recognizes he will continue to experience stressors throughout his life, but reports improved ability to cope with these stressors and begin to recognize the positives within difficult experiences. Issues Still to be Addressed:: Client has made significant strides since starting IOP as shown by reduced symptoms and improved mood stability. However, client can continue to benefit from ongoing counseling to reinforce healthy coping skills, manage intrusive thoughts, increase distress tolerance skills. Client can continue to benefit from ongoing work on utilizing opposite action to prevent reverting back to previous isolation and avoidant behaviors. Client has reported a significant decline in his father?s health as well and would benefit from ongoing therapy as well as connecting with hospice to begin preparation on what to expect with grieving process and where to get needed support. Lastly, client would benefit from ongoing focus on self-confidence and self-compassion. Discharge Recommendations/Instructions:: Client is currently established with Cielo at [facility] for outpatient counseling and Dr. Garicas for psychiatry services. He is recommended to continue to follow-up with outpatient counseling and working on challenging himself to ?do the anxious thing?. Discharge Handout: Complete Discharge Handout with client on aftercare options and continuity of care.
== END 2019-06-20 13:00 | disposition home or self-care (01) ==
LOC: BHIOP 09:00
PROVIDERS: Referring Provider Psychiatry & Neurology Psychiatry; Visit Provider Psychiatry & Neurology Psychiatry
DX: F33.2 Major depressive disorder, recurrent severe without psychotic features (principal); F41.1 Generalized anxiety disorder
CPT/HCPCS: 99214; H0035; H2012; H2020; 90832